=== PATIENT | male | born 1985 | race Two or more races ===

== ENCOUNTER 2019-11-29 12:54 | Emergency (ER) | payer BC ==
[~2019-11-29] VITALS: Ht 177.8 cm; Wt 105.0 kg
--- NOTE | 2019-11-29 14:00 | PHYS DOC ---
Past Medical History Past Medical History: No Pertinent History Past Surgical History: No Surgical History Smoking Status: Never Smoker Alcohol Use: None Adult General Chief Complaint Chief Complaint: GI PROBLEM HPI HPI 34-year-old male presenting with epigastric abdominal pain. His pain is a sharp shooting pain it is intermittent and comes and goes. Currently his pain is much better than it was earlier. He did started taking clindamycin for facial cellu litis. He started clindamycin last night. He had a feeling of nausea but did not vomit. He is not any blood in his stools. Review of systems negative for chest pain shortness of breath vomiting. Positive for nausea.. All other review of systems negative. ED course: 34-year-old male presenting to the emergency department today with epigastric abdominal pain. His pain is much improved after arriving to the emergency department. His abdomen is soft and nontender. Nondistended. We will discharge him home with some oral Pepcid. He is return for worsening abdominal pain or any other concerns. Physical Exam Physical Exam Constitutional: Well developed, well nourished, no acute distress, non-toxic appearance. [] HENT: Normocephalic, atraumatic, bilateral external ears normal, oropharynx moist, no oral exudates, nose normal. [] Eyes: PERRLA, EOMI, conjunctiva normal, no discharge. [] Neck: Normal range of motion, no tenderness, supple, no stridor. [] Cardiovascular:Heart rate regular rhythm, no murmur [] Lungs & Thorax: Bilateral breath sounds clear to auscultation [] Abdomen: Bowel sounds normal, soft, no tenderness, no masses, no pulsatile masses. Negative McBurney's point. Negative Quinones sign. Skin: Warm, dry, no erythema, no rash. [] Back: No tenderness, no CVA tenderness. [] Extremities: No tenderness, no cyanosis, no clubbing, ROM intact, no edema. [] Neurologic: Alert and oriented X 3, normal motor function, normal sensory function, no focal deficits noted. [] Psychologic: Affect normal, judgement normal, mood normal. [] Current Patient Data Vital Signs Vital Signs Date Time Temp Pulse Resp B/P (MAP) Pulse Ox O2 Delivery O2 Flow Rate FiO2 11/28/20 13:27 98.2 63 16 151/70 (97) 96 Room Air 98.2 EKG EKG [] Radiology/Procedures Radiology/Procedures [] Course & Med Decision Making Course & Med Decision Making Pertinent Labs and Imaging studies reviewed. (See chart for details) [] Dragon Disclaimer Dragon Disclaimer This electronic medical record was generated, in whole or in part, using a voice recognition dictation system. Departure Departure Impression: Primary Impression: Nausea & vomiting Disposition: HOME, SELF-CARE Condition: STABLE Referrals: UNKNOWN PCP NAME (PCP) Patient Instructions: Nausea and Vomiting Scripts Famotidine (PEPCID) 40 Mg Tablet 40 MG PO HS, #14 TAB 0 Refills Prov: ANIRUDH BELLA MD 11/29/19 ANIRUDH BELLA MD Nov 29, 2019 14:00
[2019-11-29] MEDS ORDERED: FAMO40TA57 PO (14:01)
[2019-11-29 14:22] VITALS: BP 136/78
== END 2019-11-29 14:46 | disposition home or self-care (01) ==
LOC: ER 12:54
DX: R11.2 Nausea with vomiting, unspecified (principal); R10.13 Epigastric pain
CPT/HCPCS: 99282